=== PATIENT | male | born 1930 | race Caucasian/White ===

== ENCOUNTER → 2017-06-17 | Outpatient (CLI) | payer MEDICARE, OTHER ==
[~2017-06-17] VITALS: Ht 167.6 cm; Wt 79.5 kg
[~2017-06-17] MED LIST: AMLODIPINE BESY10 MG PO; CHILDREN'S ASPI81 M1 PO; ISOSORBIDE30 MG PO; LIPITOR20 M2 PO; METOPROLOL TAR100 M1 PO
[2017-06-17 11:57] VITALS: BP 140/66
[2017-06-17 13:09] VITALS: BP 151/73
== END ==
LOC: AMSURD 11:18 → EDSTATUS 11:19
DX: E86.0 Dehydration (principal); R19.7 Diarrhea, unspecified
CPT/HCPCS: J7030

== ENCOUNTER → 2017-08-14 | Outpatient (CLI) | payer MEDICARE, OTHER ==
[2017-06-17 13:09] VITALS: BP 151/73
== END ==
LOC: RAD 09:54
DX: R06.02 Shortness of breath (principal); E87.1 Hypo-osmolality and hyponatremia; R91.8 Other nonspecific abnormal finding of lung field; R91.1 Solitary pulmonary nodule; R59.0 Localized enlarged lymph nodes; K76.9 Liver disease, unspecified; J90 Pleural effusion, not elsewhere classified; N28.9 Disorder of kidney and ureter, unspecified
CPT/HCPCS: Q9967